=== PATIENT | male | born 2005 | race Hispanic/Latino ===

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

== ENCOUNTER 2025-05-20 21:10 | Emergency (ER) | payer SELFPAY ==
[~2025-05-20] VITALS: Ht 175.3 cm; Wt 101.6 kg
--- NOTE | 2025-05-20 21:21 | NUR ---
ASSUMED PT CARE
[2025-05-20 21:33] LABS: IMMATURE GRANULOCYTE ABSOLUTE 0.04 K/uL (0-1); NUCLEATED RED BLOOD CELLS 0.0 % (0.0-0.19); PLATELET COUNT (AUTO) 393 K/uL (130-400); RED BLOOD CELL COUNT(AUTO) 4.92 MIL/uL (4.50-6.20); RED CELL DISTRIBUTION WIDTH 12.8 % (11.0-15.5); WHITE BLOOD COUNT (AUTO) 9.2 K/uL (4.8-10.8)
[2025-05-20] MEDS: FAMOTIDINE 20MG VIAL IV ONE (21:36)
[2025-05-20] MEDS: 0.9%NACL 1000ML 1,000 ML IV ONE (21:36)
[2025-05-20 21:46] LABS: CREATININE 0.7 mg/dL (0.5-1.3); GLOMERULAR FILTR. RATE CALC 136.0 mL/min (>90); GLUCOSE,RANDOM 107.0 mg/dL (70-105); SODIUM SERUM 141.0 mmol/L (136-145); UREA NITROGEN, BLOOD 19.0 mg/dL (7-18)
[2025-05-20 21:50] LABS: ASPARTATE AMINOTRANSFERASE 53.0 U/L (10-37); TOTAL PROTEIN, SERUM 7.7 g/dL (6.0-8.3)
--- NOTE | 2025-05-20 23:18 | ERN ---
General Chief Complaint: Abdominal Pain Stated Complaint: C/O ABD PAIN WITH N X V Time Seen by MD: 21:12 Time Seen by Midlevel: 21:12 Source: patient History of Present Illness Initial Comments The patient is a 19-year-old male presenting to the emergency department for evaluation of left upper quadrant abdominal pain. The patient states he was at work when he felt a pop to his left upper abdomen/left lower chest wall. This was followed by three episodes of emesis. On arrival he does feel slightly improved but wanted further evaluation. Denies any past medical history. Denies any medications on a daily basis. Allergies: Coded Allergies: No Known Allergies (Unverified Allergy, Unknown, 04/17/24) Home Meds Active Scripts Naproxen Sodium (Naproxen Cr) 500 Mg Tbmp.24hr, 500 MG PO BID for pain, #20 TAB.SR Prov:SIENA GELLER DO 04/17/24 Past Medical History Past Medical History: No Pertinent History Medical History Other: KNEE PAIN Past Surgical History: None ROS Dictation CONSTITUTIONAL: Negative except for HPI HEAD/FACE: Negative except for HPI EENT: Negative except for HPI RESPIRATORY: Negative except for HPI GASTROINTESTINAL/ABDOMINAL: Negative except for HPI GENITOURINARY: Negative except for HPI MUSCULOSKELETAL: Negative except for HPI INTEGUMENTARY: Negative except for HPI NEUROLOGICAL/PSYCH: Negative except for HPI HEMATOLOGIC/LYMPHATIC: Negative except for HPI All Systems Negative, Except as noted above. 13 point review of systems assessed and all negative except for above. Physical Exam Physical Exam Dictation Vital Signs reviewed General Appearance: Alert, oriented x 3, no acute distress, well developed, nourished. Head and Face: non-traumatic. Eyes: PERRL, pink conjunctivas, eyelid no trauma, anterior chamber with arcus senilis. Ears: Pinnas intact and no signs of trauma or erythema ear canals clear and no discharge TM no erythema Nose: No discharge, no bleeding. Oropharynx: Mouth normal, tongue pink, pharynx clear,no erythema, tonsils no exudates, no abscesses noted, mucous membrane moist Neck: Supple, non-tender, no thyromegaly, no masses, no JVD, no bruits Breast:Deferred Chest:No tenderness, no crepitus, no paradoxical movement, no retractions Lungs:Clear, well-ventilated, symmetric, no rales, no wheezing, no rhonchi, no stridor, good breath sounds bilaterally Heart: Regular rate, regular rhythm, no murmur, no gallops Vascular: no peripheral edema, Abdomen: Soft, positive bowel sounds, nondistended, no guarding, nontender, no rebound, no masses no hepatomegaly, no splenomegaly, no Saldivar's sign, no hernias. Rectal: Deferred Genital: Deferred Neurological: Normal speech, motor function intact, sensory function intact Musculoskeletal: Neck nontender, full range of motion, back nontender, full range of motion, Extremities: nontender, full range of motion Skin: Color pink, dry, no turgor, no rash, no lacerations, no abrasions, no contusions. Lymphatic: Deferred Results Laboratory and Microbiology Lab and Micro Result Laboratory Tests Test 05/20/25 21:27 White Blood Count 9.2 K/uL (4.8-10.8) Red Blood Count 4.92 MIL/uL (4.50-6.20) Hemoglobin 14.6 g/dL (14.0-18.0) Hematocrit 43.2 % (42-54) Mean Corpuscular Volume 87.8 fL (80-100) Mean Corpuscular Hemoglobin 29.7 pg (27.0-33.0) Mean Corpuscular Hemoglobin Concent 33.8 g/dL (32.0-36.0) Red Cell Distribution Width 12.8 % (11.0-15.5) Platelet Count 393 K/uL (130-400) Mean Platelet Volume 9.0 fL (7.5-10.5) Immature Granulocyte % (Auto) 0.4 % (0-1) Neutrophils (%) (Auto) 62.3 % (40.0-77.0) Lymphocytes (%) (Auto) 27.8 % (21.0-51.0) Monocytes (%) (Auto) 7.6 % (3.0-13.0) Eosinophils (%) (Auto) 1.2 % (0.0-8.0) Basophils (%) (Auto) 0.7 % (0.0-5.0) Neutrophils # (Auto) 5.7 K/uL (1.8-7.7) Lymphocytes # (Auto) 2.6 K/uL (1.0-4.8) Monocytes # (Auto) 0.7 K/uL (0.1-1.0) Eosinophils # (Auto) 0.11 K/uL (0.00-0.70) Basophils # (Auto) 0.06 K/uL (0.00-0.20) Absolute Immature Granulocyte (auto 0.04 K/uL (0-1) Nucleated Red Blood Cells 0.0 % (0.0-0.19) Sodium Level 141 mmol/L (136-145) Potassium Level 3.9 mmol/L (3.5-5.1) Chloride Level 105 mmol/L (101-111) Carbon Dioxide Level 28 mmol/L (21-32) Blood Urea Nitrogen 19 mg/dL (7-18) H Creatinine 0.7 mg/dL (0.5-1.3) Glomerular Filtration Rate Calc 136 mL/min (>90) Random Glucose 107 mg/dL (70-105) H Total Calcium 9.1 mg/dL (8.5-10.1) Total Bilirubin 0.8 mg/dL (0.2-1.0) Direct Bilirubin 0.1 mg/dL (0.0-0.3) Aspartate Amino Transf (AST/SGOT) 53 U/L (10-37) H Alanine Aminotransferase (ALT/SGPT) 210 U/L (12-78) H Alkaline Phosphatase 133 U/L (50-136) Total Protein 7.7 g/dL (6.0-8.3) Albumin 4.1 g/dL (3.5-5.0) Lipase 27 U/L (16-77) Labs Reviewed?: Yes MDM MDM: Differential diagnosis: Constipation, pneumothorax, chest wall pain There are no social concerns with this patient. Prescription drug management Prescriptions will include: None Medical management and examination interpretation discussions were had by me with other qualified healthcare professionals as indicated for the patient's care. ED Course Orders Procedure Category Date Status Time Cbc With Differential LAB 05/20/25 Complete 21:22 Basic Metabolic Panel LAB 05/20/25 Complete 21:22 Hepatic Function Panel LAB 05/20/25 Complete 21:22 Lipase LAB 05/20/25 Complete 21:22 0.9%Nacl 1000ml (Ns PHA 05/20/25 Complete 1000ml) 21:30 Ondansetron 4mg Inj PHA 05/20/25 Complete (Zofran 4mg Inj) 21:30 Famotidine 20mg Vial PHA 05/20/25 Complete (Pepcid 20mg Vial) 21:30 Chest 1vw RAD 05/20/25 Taken 21:49 Current Medications Medications (Trade) Dose Ordered Sig/Nikki Route PRN Reason Start Time Stop Time Status Last Admin Dose Admin Famotidine (Pepcid 20mg Vial) 20 mg ONCE ONCE IV 05/20/25 21:30 05/20/25 21:31 DC 05/20/25 21:36 Ondansetron HCl (zoFRAN 4MG INJ) 4 mg ONCE ONCE IVP 05/20/25 21:30 05/20/25 21:31 DC 05/20/25 21:36 Sodium Chloride 1,000 ml @ 0 mls/hr ONCE ONCE IV 05/20/25 21:30 05/20/25 21:31 DC 05/20/25 21:36 Vital Signs Date Time Temp Pulse Resp B/P (MAP) Pulse Ox O2 Delivery O2 Flow Rate FiO2 05/20/25 21:29 98.8 85 18 132/65 99 Room Air* 0 21 05/20/25 21:11 98.8 77 18 121/73 97 Room Air DX & DISP Disposition: Discharge Departure Impression: Primary Impression: Left upper quadrant pain Condition: Stable Additional Instructions: Your blood work today is unremarkable. Your chest x-ray is normal. Your blood work does not show any signs of infection. You are not anemic. Your kidney function is normal. Your electrolytes are normal. Please follow up with your primary care doctor in 2-3 days for repeat evaluat ion. You may take Tylenol and Motrin as needed for pain. I have given you a prescription for Zofran. Referrals: SELF,REFERRAL (PCP) I have reviewed the case, and I agree with, Diagnosis and Plan I performed the substantive portion of the visit. I have reviewed and personally made and approve the management plan that is documented in the note by myself or the BALJINDER. I acknowledge for responsibility for the patient's management plan. LEMUEL HAWK May 20, 2025 23:18
[2025-05-20 23:27] VITALS: BP 128/68; PULSE 82; RESP 16; TEMP 98.8; O2SAT 99
--- NOTE | 2025-05-20 23:27 | HMCIMG ---
EXAM: CR Chest, 1 View. CLINICAL HISTORY: left lower chest wall pain COMPARISON: None provided. FINDINGS: LUNGS: The lungs show no infiltrate or other acute finding. PLEURAL SPACES: No evidence of pleural effusion or pneumothorax. MEDIASTINUM: The cardiomediastinal silhouette is within normal limits. BONES: No aggressive appearing osseous lesion seen. IMPRESSION: No acute cardiopulmonary pathology is evident. /[place]
[2025-05-20] MEDS ORDERED: ONDA-243 PO (23:34)
== END 2025-05-20 23:36 | disposition home or self-care (01) ==
LOC: EDH 21:10
DX: R10.12 Left upper quadrant pain (principal); Z79.899 Other long term (current) drug therapy
CPT/HCPCS: 99284; 96374; 71045; 96361; 96375; 80076; 80048; 83690; 85025; 36415; J3490; J7030; J2405

== ENCOUNTER 2025-08-14 23:26 | Emergency (ER) | payer SELFPAY ==
[~2025-08-14] VITALS: Ht 172.7 cm; Wt 97.5 kg
[~2025-08-14 23:26] MED LIST changes: +ONDA-243 PO
--- NOTE | 2025-08-14 23:28 | NUR ---
COVID AND FLU COLLECTED AND SENT
[2025-08-14 23:57] LABS: INFLUENZA TYPE A Negative For Type A (NEGATIVE); INFLUENZA TYPE B Negative For Type B (NEGATIVE)
[2025-08-15 00:03] LABS: SARS-CoV-2, RNA, NAAT POSITIVE SARS CoV-2 (NEGATIVE)
--- NOTE | 2025-08-15 00:31 | ERN ---
ED Note History of Present Illness Stated Complaint: FEVER Chief Complaint: Fever Time Seen by MD: 23:28 Time Seen by Midlevel: 23:28 Dictation: The patient is a 19-year-old male with no significant past medical history who presents to the emergency department with complaints fever, body aches, nasal congestion, sore throat onset two days ago. Patient reports that he had two e pisodes of nonbloody vomiting yesterday but none today. Denies any abdominal pain or diarrhea. Denies any cough. Allergies: Coded Allergies: No Known Allergies (Unverified Allergy, Unknown, 04/17/24) Home Meds Active Scripts Ondansetron (Ondansetron Odt) 4 Mg Tab.rapdis, 4 MG PO BID for 7 Days, #14 TAB Prov:LEMUEL HAWK 05/20/25 Naproxen Sodium (Naproxen Cr) 500 Mg Tbmp.24hr, 500 MG PO BID for pain, #20 TAB.SR Prov:SIENA GELLER DO 04/17/24 Past Medical History Past Medical History: Other Additional Past Medical Hx: KNEE PAIN Surgical History: None RN Note Reviewed/Agreed w/PFSH: Yes Review of System Dictation Constitutional: Negative for chills, and weight loss positive for fever, body aches Eyes: Negative for injury, pain,redness, and discharge ENT: Negative for injury,pain or swelling positive for nasal congestion, sore throat Cardiovascular: Negative for chest pain, palpitations, and edema Respiratory: Negative for shortness of breath, cough, and wheezing, Abdomen/GI: Negative for abdominal pain, nausea, vomiting, diarrhea, and constipation Back: Negative for injury and pain : Negative for injury, bleeding and discharge MS/Extremity: Negative for injury and deformity Skin: Negative for rash, and discoloration Neuro: Negative for headache, weakness, numbness, tingling, and seizure Psych: Negative for suicide ideation, homicidal ideation, and hallucinations Initial Vital Sign VS Vital Signs Date Time Temp Pulse Resp B/P (MAP) Pulse Ox O2 Delivery O2 Flow Rate FiO2 08/14/25 23:27 100.6 97 20 151/80 97 Room Air 08/14/25 23:53 0 21 Physical Exam Dictation Vital Signs reviewed General Appearance: Alert, oriented x 3, no acute distress, well developed, nourished. Head and Face: non-traumatic. Eyes: PERRL, pink conjunctivas, eyelid no trauma, anterior chamber with arcus senilis. Ears: Pinnas intact and no signs of trauma or erythema ear canals clear and no discharge, bilateral TM erythema Nose: No discharge, no bleeding. Oropharynx: Mouth normal, tongue pink. pharynx clear,no erythema, tonsils no exudates, no abscesses noted, mucous membrane moist Neck: Supple, non-tender, no thyromegaly, no masses, no JVD, no bruits Breast:Deferred Chest:No tenderness, no crepitus, no paradoxical movement, no retractions Lungs:Clear, well-ventilated, symmetric, no rales, no wheezing, no rhonchi, no stridor, good breath sounds bilaterally Heart: Regular rate, regular rhythm, no murmur, no gallops Vascular: no peripheral edema, Abdomen: Soft, positive bowel sounds, nondistended, no guarding, nontender, no rebound, no masses no hepatomegaly, no splenomegaly, no Saldivar's sign, no hernias. Rectal: Deferred Genital: Deferred Neurological: Normal speech, motor function intact, sensory function intact Musculoskeletal: Neck nontender, full range of motion, back nontender, full range of motion, Extremities: nontender, full range of motion Skin: Color pink, dry, no turgor, no rash, no lacerations, no abrasions, no contusions. Lymphatic: Deferred Results (Laboratory/Radiology) Laboratory/Radiology Laboratory Tests Test 08/14/25 22:44 08/14/25 23:50 Influenza Type A Antigen Negative For Type A Influenza Type B Antigen Negative For Type B SARS-CoV-2, RNA, NAAT POSITIVE SARS CoV-2 Group A Streptococcus Rapid negative (NEGATIVE) Labs Reviewed?: Yes ED Course ED Course Orders Procedure Category Date Status Time Covid Rna Naat LAB 08/14/25 Complete 23:28 Influenza Type A & B, LAB 08/14/25 Complete Rapid 23:28 Rapid (Group A Strep) LAB 08/14/25 Complete 23:43 Acetaminophen 500mg PHA 08/15/25 Complete Tab (Tylenol 500mg T 00:00 Current Medications Medications (Trade) Dose Ordered Sig/Nikki Route PRN Reason Start Time Stop Time Status Last Admin Dose Admin Acetaminophen (TYLenol 500MG TAB) 1,000 mg ONCE ONCE PO 08/15/25 00:00 08/15/25 00:02 DC 08/14/25 23:49 Vital Signs Date Time Temp Pulse Resp B/P (MAP) Pulse Ox O2 Delivery O2 Flow Rate FiO2 08/14/25 23:53 110 22 133/79 99 Room Air* 0 21 08/14/25 23:27 100.6 97 20 151/80 97 Room Air Medical Decision Making MDM The patient is a 19-year-old male with no significant past medical history who presents to the emergency department with complaints fever, body aches, nasal congestion, sore throat onset two days ago. Patient reports that he had two episodes of nonbloody vomiting yesterday but none today. Denies any abdominal pain or diarrhea. Denies any cough. Serology was positive for COVID-19 infection. On physical exam patient is in no acute distress, nontoxic appearance, nontender abdomen to palpation, clear lung sounds. Patient will be discharged to follow up with PCP. Differential diagnosis: URI, viral gastroenteritis, otitis media, strep throat Need for hospitalization: Patient does not meet criteria for hospitalization. There are no social concerns with this patient. DX & DISP Disposition: Discharge Departure Impression: Primary Impression: COVID-19 virus infection Condition: Stable Additional Instructions: You tested positive for COVID-19 which is a virus. You do not need any antibiotics at this time. Please follow up with the your primary doctor in 1-2 days. If anything worsens please return to ER. FOLLOW-UP WITH PRIMARY CARE PROVIDER IN 1 TO 2 DAYS. TAKE MEDICATIONS DIRECTED HERE IN THE EMERGENCY ROOM. OKAY TO CONTINUE HOME MEDICATIONS UNLESS OTHERWISE DISCUSSED DURING YOUR VISIT IN THE EMERGENCY ROOM TODAY. RETURN TO YOUR NEAREST EMERGENCY ROOM IF SYMPTOMS WORSEN OR IF THERE IS NO IMPROVEMENT. CALL 911 IF YOU NEED IMMEDIATE ASSISTANCE. TAKE TYLENOL [id number] NEEDED AND IF NO CONTRAINDICATIONS ARE PRESENT. INCREASE ORAL HYDRATION. A WOUND CULTURE OR URINE CULTURE WAS ORDERED HERE IN THE EMERGENCY ROOM DEPARTMENT PLEASE FOLLOW-UP WITH PRIMARY CARE PROVIDER AND ADVISE THEM TO GET REPEAT PORTS FROM OUR FACILITY. IF YOU HAD ANY AL WRAP/SPLINTS THAT WERE APPLIED HERE, PLEASE DO NOT REMOVE THEM UNTIL YOU SEE YOUR PRIMARY CARE OR SPECIALTY. Referrals: SELF,REFERRAL (PCP) Time of Disposition: 00:36 I have reviewed the case, and I agree with, Diagnosis and Plan LEILANI WIN SUPERVISOR MAILS Aug 15, 2025 00:31
[2025-08-15 00:50] VITALS: BP 123/78; PULSE 95; RESP 20; TEMP 99.1; O2SAT 97
== END 2025-08-15 01:00 | disposition home or self-care (01) ==
LOC: EDH 23:26
DX: U07.1 COVID-19 (principal)
CPT/HCPCS: 87635; 87804; 87880; 99283